=== PATIENT | female | born 1940 | race Native Hawaiian/Other Pacific Islander ===

== ENCOUNTER 2021-12-12 16:54 | Emergency (ER) | payer OTHER ==
[~2021-12-12] VITALS: Ht 162.6 cm; Wt 74.8 kg
[2021-12-12 18:12] LABS: PLATELET COUNT 248 K/uL (152-353)
[2021-12-12 18:24] LABS: POTASSIUM 4.1 mmol/L (3.6-5.2)
[2021-12-12 18:34] LABS: PARTIAL THROMBOPLASTIN TIME 21.9 SECONDS (24.5-33.6)
[2021-12-12 19:45] VITALS: BP 146/63; TEMP 98.2
== END 2021-12-12 19:45 | disposition home or self-care (01) ==
LOC: ED 16:54
PROVIDERS: Family Medicine
DX: R07.89 Other chest pain (principal); M48.02 Spinal stenosis, cervical region; M71.58 Other bursitis, not elsewhere classified, other site
CPT/HCPCS: 36415; 80053; 82550; 84484; 85027; 85610; 85730; 93005; 96374; 99284; J2930

== ENCOUNTER 2022-02-01 08:24 | Emergency (ER) | payer OTHER ==
[~2022-02-01] VITALS: Ht 162.6 cm; Wt 74.8 kg
[2022-02-01 08:24] VITALS: TEMP 98.1
[2022-02-01 09:08] LABS: PLATELET COUNT 270 K/uL (152-353)
[2022-02-01 10:28] LABS: PARTIAL THROMBOPLASTIN TIME 22.2 SECONDS (24.5-33.6)
[2022-02-01 12:30] VITALS: BP 143/55
== END 2022-02-01 12:50 | disposition short-term general hospital (02) ==
LOC: ED 08:24
PROVIDERS: Emergency Medicine Emergency Medical Services
DX: R07.89 Other chest pain (principal); R06.09 Other forms of dyspnea; Z95.2 Presence of prosthetic heart valve
CPT/HCPCS: 80053; 83735; 83880; 84484; 85027; 85379; 85610; 85730; 93005; 96372; 99284; J1650

== ENCOUNTER 2022-08-26 21:43 | Emergency (ER) | payer OTHER ==
[~2022-08-26] VITALS: Ht 162.6 cm; Wt 68.0 kg
[2022-08-26 21:45] VITALS: TEMP 97.6
[2022-08-26 22:33] LABS: PLATELET COUNT 188 K/uL (152-353)
[2022-08-26 22:38] LABS: POTASSIUM 4.1 mmol/L (3.6-5.2)
[2022-08-27 00:40] VITALS: BP 145/65
== END 2022-08-27 00:40 | disposition home or self-care (01) ==
LOC: ED 21:43
PROVIDERS: Family Medicine
DX: R10.9 Unspecified abdominal pain (principal); R53.1 Weakness
CPT/HCPCS: 80053; 81002; 85027; 96372; 99283; J1885; J2550

== ENCOUNTER 2022-12-03 06:12 | Outpatient (CLI) | payer OTHER | END 2022-12-03 18:52 | disposition home or self-care (01) | LOC: LAB 06:12 | PROVIDERS: ATTEND Internal Medicine | DX: Z16.24 Resistance to multiple antibiotics (principal) ==